=== PATIENT | male | born 1990 | race African-American/Black ===

== ENCOUNTER 2019-11-13 13:03 | Emergency (ER) | payer SELFPAY ==
[~2019-11-13] VITALS: Ht 167.6 cm; Wt 65.8 kg
--- NOTE | 2019-11-13 13:41 | NUR ---
[place] sandwich, cut-fruits & iced water provided. Hot dinner tray was ordered for later. Dietary notified. Urine specimen was requested from patient. [email or web address].
[2019-11-13 13:47] LABS: LYMPHOCYTES # (AUTO) 2.2 K/uL (20.0-40.0); NEUTROPHILS # (AUTO) 3.8 K/uL (1.8-8.9); WHITE BLOOD COUNT (AUTO) 7.1 K/uL (3.6-10.2)
[2019-11-13 13:51] LABS: BASOPHILS % (AUTO) 0.6 % (0.0-2.0); EOSINOPHILS # (AUTO) 0.2 K/uL (0.0-0.7); EOSINOPHILS % (AUTO) 3.4 % (0.0-7.0); HEMATOCRIT 43.1 % (36.7-47.1); HEMOGLOBIN 14.2 g/dL (12.5-16.3); LYMPHOCYTES % (AUTO) 31.2 % (20.5-51.5); MEAN CORPUSCULAR HEMOGLOBIN 28.1 uug (23.8-33.4); MEAN CORPUSCULAR HGB CONC 33 g/dL (32.5-36.3); MEAN CORPUSCULAR VOLUME 85.2 fL (73.0-96.2); MONOCYTES # (AUTO) 0.8 K/uL (2.0-10.0); MONOCYTES % (AUTO) 11.5 % (0.0-11.0); NEUTROPHILS % (AUTO) 53.3 % (38.5-71.5); PLATELET COUNT (AUTO) 208 K/uL (152-348); RED BLOOD CELL COUNT(AUTO) 5.06 MIL/uL (4.06-5.63)
--- NOTE | 2019-11-13 14:00 | NUR ---
1:50pm: KARY spoke with Ke at [facility] [phone] and made a phone referral for the patient for inpatient psychiatric hospitalization. KARY then faxed patient's face sheet and ED Summary report to Ke at [phone]. KARY informed SS Director Margaret Oneill of [facility], who stated that she will then follow up.
[2019-11-13 14:09] LABS: CARBON DIOXIDE 24 mmol/L (21-32); CHLORIDE 104 mmol/L (98-107); CREATININE 1.1 mg/dL (0.6-1.3); GLUCOSE 66 mg/dL (74-106); POTASSIUM 3.8 mmol/L (3.5-5.1); UREA NITROGEN, BLOOD 17 mg/dL (7-18)
--- NOTE | 2019-11-13 14:14 | NUR ---
Patient is resting comfortably on gurney with eyes closed. Calm & cooperative when awake, for medical clearance and psych evaluation
[2019-11-13 14:15] LABS: ACETAMINOPHEN < 2.0 ug/mL (10-30); ALANINE AMINOTRANSFERASE 29 U/L (16-63); ALKALINE PHOSPHATASE 53 U/L (50-136); ASPARTATE AMINOTRANSFERASE 43 U/L (15-37); BILIRUBIN,DIRECT 0.4 mg/dL (0.0-0.2); BILIRUBIN,TOTAL 1.8 mg/dL (0.2-1.0); ETHANOL < 3 MG/DL (0-0); TOTAL PROTEIN, SERUM 7.3 g/dL (6.4-8.2)
[2019-11-13 14:17] LABS: *BLOOD, URINE NEGATIVE (NEGATIVE); *CLARITY,URINE CLEAR (CLEAR); *KETONES,URINE 1+ (NEGATIVE); *UROBILINOGEN,URINE 0.2 E.U./dl (NORMAL); LEUKOCYTE ESTERASE ,URINE NEGATIVE (NEGATIVE); NITRITE, URINE NEGATIVE (NEGATIVE); PH,URINE 5.5 (5.0-8.0); UGLUCOSE NEGATIVE (NEGATIVE)
[2019-11-13 14:18] LABS: *BILIRUBIN,URIN 1+ (NEGATIVE)
[2019-11-13 14:19] LABS: *COLOR,URINE DARK YELLOW (YELLOW)
[2019-11-13 14:25] LABS: RBC,URINE 0-3 /HPF (0-3); WBC,URINE 20-50 /HPF (0-3)
[2019-11-13 14:28] LABS: MUCUS,URINE MODERATE /LPF (0-FEW); SQUAMOUS EPITHELIAL CELL,UR MODERATE /HPF (NONE SEEN)
[2019-11-13 14:37] LABS: *AMPHETAMINE, URINE POSITIVE (NEGATIVE); *BARBITURATE, URINE NEGATIVE (NEGATIVE); *CANNABINOID, URINE POSITIVE (NEGATIVE); *COCCAINE, URINE NEGATIVE (NEGATIVE); *OPIATE, URINE NEGATIVE (NEGATIVE); *PHENCYCLIDINE SCREEN,URINE NEGATIVE (NEGATIVE)
[2019-11-13 14:43] LABS: BACTERIA,URINE FEW /HPF (NONE SEEN)
[2019-11-13] MEDS ORDERED: SULFAMETH/TRIMETH 800/160 MG TABLET ONE (14:44)
[2019-11-13] MEDS ORDERED: SULFAMETH/TRIMETH 800/160 MG TABLET PO ONE (14:45)
--- NOTE | 2019-11-13 14:53 | NUR ---
Margaret Oneill is here & evaluating patient
--- NOTE | 2019-11-13 15:26 | NUR ---
Patient is medically cleared & psychiatrically cleared to be discharge from our ER department. Patient was given written and verbal discharge instructions to patient. Patient verbalized understanding & compliance of instructions. Patient was ambulatory with brisk steady gait. Security officers escorted patient. Patient refused offer of fpc placement and refused to sign HOMELESS PATIENT WAIVER FORM. Patient was given a list of available shelters in surrounding area prescription for UTI.
== END 2019-11-13 15:36 | disposition home or self-care (01) ==
LOC: ER 13:03
DX: F20.9 Schizophrenia, unspecified (principal); F32.9 Major depressive disorder, single episode, unspecified; Z59.0 Homelessness; F19.10 Other psychoactive substance abuse, uncomplicated; F60.89 Other specific personality disorders; R82.71 Bacteriuria
CPT/HCPCS: 36415; 80048; 80076; 80307 ×2; 80329; 81001; 85025; 87086; 99283; G0480; A4663